=== PATIENT | female | born 1985 | race Caucasian/White ===

== ENCOUNTER 2016-09-23 17:56 | Emergency (ER) | payer SELFPAY ==
[~2016-09-23] VITALS: Ht 162.6 cm; Wt 60.0 kg
[~2016-09-23 17:56] MED LIST: ALEVE 220MG220 MG PO; BENADRYL25 M2; CEPHALEXIN500 M1 PO; FLEXERIL 1010 MG/TAB PO; LORTAB 5/500 501 TAB PO; NAPROSYN500 MG PO; NO HOME MEDICATIONS; NORCO 325 MG-51 TAB PO; NORCO 325 MG-7.1 TAB PO; PHENERGAN 25 TA25 MG PO; PROAIR HFA0.09 MG/AC IH; RYZOLT100 MG PO; TAMIFLU 75MG75 MG PO
[2016-09-23 18:02] VITALS: BP 116/86; TEMP 98
[2016-09-23] MEDS ORDERED: CEPHALEXIN500 M1 PO (19:27)
[2016-09-23] MEDS ORDERED: VOLTAREN 75 DR75 MG PO (19:27)
[2016-09-23 19:35] VITALS: PULSE 89
== END 2016-09-23 19:36 | disposition home or self-care (01) ==
LOC: COL.ER 17:56
DX: S80.01XA Contusion of right knee, initial encounter (principal); M25.461 Effusion, right knee; W10.8XXA Fall (on) (from) other stairs and steps, initial encounter; Y92.008 Other place in unspecified non-institutional (private) residence as the place of occurrence of the external cause

== ENCOUNTER 2021-04-08 01:31 | Emergency (ER) | payer SELFPAY ==
[~2021-04-08] VITALS: Ht 165.1 cm; Wt 62.7 kg
[~2021-04-08 01:31] MED LIST changes: +VOLTAREN 75 DR75 MG PO
[2021-04-08 01:42] VITALS: TEMP 97.1
[2021-04-08] MEDS ORDERED: FLEXERIL 1010 MG/TAB PO (02:01)
[2021-04-08 02:20] VITALS: BP 140/78; PULSE 76
== END 2021-04-08 02:20 | disposition home or self-care (01) ==
LOC: COL.ER 01:31
DX: M62.838 Other muscle spasm (principal); F17.210 Nicotine dependence, cigarettes, uncomplicated
CPT/HCPCS: J1885